=== PATIENT | male | born 1960 | race Caucasian/White ===

== ENCOUNTER → 2021-11-12 | Day surgery (SDC) | payer OTHER ==
[~2021-11-12] VITALS: Ht 170.2 cm; Wt 81.7 kg
[~2021-11-12] MED LIST: ACTEMRA AC162 MG/0.9 IN; CHROMIUM PIC1000 MCG PO; COZAAR50 MG PO; ENBREL25 MG/0.5 SC; FOLIC ACID1 MG PO; METHOTREXATE2.5 MG PO; MILK THISTLE175 M1 PO; NAPROSYN500 MG PO; PREDNISONE 1MG T1 MG PO; PRILOSEC20 MG PO; VITAMIN B COMP1 EACH PO
[2021-11-12 09:18] LABS: HCT 44.5 % (42.0-52.0); HGB 16.1 g/dl (13.2-18.0); MCH 32.9 pg (25.0-31.0); MCHC 36.2 g/dL (32.0-36.0); MPV 9.2 fL (6.0-9.5); RBC 4.89 M/uL (4.70-6.00); RDW 12.9 % (11.5-14.0); WBC 8.6 K/uL (4.0-10.5)
[2021-11-12 09:40] LABS: ALBUMIN 4.3 g/dL (3.4-5.0); BILIRUBIN - TOTAL 1.1 mg/dL (0.2-1.0); BUN/CREAT RATIO (CALC) 36.6 RATIO; CREATININE 0.82 mg/dL (0.67-1.17); POTASSIUM 3.7 mmol/L (3.5-5.1); TOTAL PROTEIN 7.3 g/dL (6.4-8.2)
== END | disposition home or self-care (01) ==
LOC: FAS 08:32
PROVIDERS: Surgery
DX: Z12.11 Encounter for screening for malignant neoplasm of colon (principal); Z86.010 Personal history of colon polyps; Z88.8 Allergy status to other drugs, medicaments and biological substances
CPT/HCPCS: 36415; 80053; J2704; J7120